=== PATIENT | female | born 2005 | race African-American/Black ===

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

== ENCOUNTER 2023-10-06 10:21 | Emergency (ER) | payer OTHER ==
[~2023-10-06] VITALS: Ht 160 cm; Wt 54.4 kg
[2023-10-06 10:30] VITALS: BP 108/69; PULSE 85; RESP 16; TEMP 98.5; O2SAT 99
[2023-10-06] MEDS ORDERED: D-ME473S50 PO (12:16)
[2023-10-06] MEDS ORDERED: NAPR-681 MT (12:16)
== END 2023-10-06 12:31 | disposition home or self-care (01) ==
LOC: ER 10:21
DX: U07.1 COVID-19 (principal)
CPT/HCPCS: 87426; 99283